=== PATIENT | male | born 1960 | race Caucasian/White ===

== ENCOUNTER 2025-03-20 08:53 | Emergency (ER) | payer MEDICARE, SELFPAY ==
[2025-03-20] VITALS (8 sets, daily range): BP systolic 158–224; BP diastolic 88–138; PULSE 74–88; RESP 12–21; TEMP 37; O2SAT 93–97; BMI 24.3
--- NOTE | 2025-03-20 09:19 | DI.RAD.S_ITS ---
PROCEDURE: XR CHEST 1V
--- NOTE | 2025-03-20 09:19 | DI.RAD.S_ITS ---
PROCEDURE: XR HAND RT MIN 3V
--- NOTE | 2025-03-20 09:19 | DI.CT.S_ITS ---
PROCEDURE: CT HEAD/BRAIN WO CON
[2025-03-20 09:26] LABS: Add Manual Diff / Slide Review NO; Hematocrit 48.2 % (41-53); Hemoglobin 16.1 g/dL (13.5-17.5); Lymphocytes Absolute Auto 1200 /uL (1100-4500); Mean Corpuscular HGB Conc 33.3 % (30-36); Mean Corpuscular Hemoglobin 30.3 PG (26-34); Mean Corpuscular Volume 90.9 fL (80-100); Platelet Count 293 X10^3/uL (150-400)
[2025-03-20 09:31] LABS: INR 1.2 (0.9-1.3); Prothrombin Time 13.7 SECONDS (9.4-12.5)
[2025-03-20 09:37] LABS: Alanine Aminotransferase 20 IU/L (<50); Albumin 5.1 g/dL (3.5-5.0); Albumin Globulin Ratio 1.4 (1.0-2.8); Alkaline Phosphatase 82 U/L (38-126); Blood Urea Nitrogen 9 mg/dL (9-20); Calcium 9.4 mg/dL (8.4-10.2); Carbon Dioxide 26 mmol/L (22-32); Chloride 103 mmol/L (98-107); Estimated Glomerular Filt Rate > 60 mL/min (>60); Globulin 3.6 g/dL (1.7-4.1); Glucose 126 mg/dL (70-99); HEMOLYSIS < 15 (0-50); Potassium 3.5 mmol/L (3.4-5.1); Sodium 142 mmol/L (137-145); Total Protein 8.7 g/dL (6.3-8.2)
--- NOTE | 2025-03-20 09:43 | ED.FALL ---
HPI - Fall General Chief Complaint: Trauma Stated Complaint: RT wrist/hand injury due to fall - t-1 Time Seen by Provider: 03/20/25 09:08 Source: patient Mode of arrival: Ambulatory History of Present Illness HPI Narrative: 65 years old male with history of hypertension, CVA on Plavix came in today complaining of right hand pain, head injury after the fall yesterday. He was walking [place] and slipped on a would log then fell backward his right side of his head to another would log without loss of consciousness, neck pain, back pain, chest pain, abdominal pain, nausea vomiting, headaches, numbness weakness on his arms or leg. He noticed right away the swelling, pain and bruises right hand. Related Data Previous Rx's ?Medication ?Instructions ?Recorded hydrocodone 5 mg-acetaminophen 325 1 tab PO Q8H PRN pain #8 tabs 03/20/25 mg tablet Allergies Allergy/AdvReac Type Severity Reaction Status Date / Time morphine Allergy ITCHING Verified 03/20/25 09:06 Review of Systems Review of Systems Narrative: Positive for head injury, right hand pain, swelling. Negative for neck pain, back pain, chest pain, abdominal pain, loss of consciousness, nausea vomiting, shortness of breath, numbness/weakness on his arms or legs. Patient History Social History Smoking Status: Former smoker Smoking Status: Former smoker Exam Narrative Exam Narrative: GENERAL: Alert awake without acute distress. HEAD: Atraumatic. Normocephalic. EYES: Normal eye movement both eyes. NECK: Trachea midline. Non tender. No midline C-spine tenderness on palpation. CARDIOVASCULAR: Regular rate and rhythm without murmurs, gallops, or rubs. RESPIRATORY: Clear to auscultation. Breath sounds equal bilaterally. No wheezes, rales, or rhonchi. GASTROINTESTINAL: Abdomen soft, non-tender, nondistended. EXTREMITIES: Tenderness on palpation, swelling, ecchymosis dorsum right hand. Decreased range of motion of finger flexion. No deformity or crepitus right hand. BACK: Nontender without deformity or crepitance. No flank tenderness. No midline tenderness on palpation thoracolumbar spine. NEURO: AOx3. Moving both arms and legs. Normal sensation and strength in both arms and legs. SKIN: No rash or erythema of visible areas. Swelling ecchymosis dorsum of the right hand. Initial Vital Signs Initial Vital Signs: Vital Signs Temperature 98.6 F 03/20/25 09:05 Pulse Rate 88 03/20/25 09:05 Respiratory Rate 18 03/20/25 09:05 Blood Pressure 224/105 H 03/20/25 09:05 Pulse Oximetry 96 03/20/25 09:05 Oxygen Delivery Method Room Air 03/20/25 09:05 Course Orders Ordered: Discontinued Medications Hydromorphone HCl (Hydromorphone Hcl 0.5 Mg/0.5 Ml Syringe) 0.5 mg IV NOW ONE Stop: 03/20/25 09:48 Last Admin: 03/20/25 09:51 Dose: 0.5 mg Documented By: WEI Hydromorphone HCl (Hydromorphone Hcl 0.5 Mg/0.5 Ml Syringe) 0.5 mg IV NOW ONE Stop: 03/20/25 10:42 Last Admin: 03/20/25 10:47 Dose: 0.5 mg Documented By: SONNY Vital Signs Vital signs: Vital Signs - 8 hr 03/20/25 09:05 03/20/25 09:16 03/20/25 09:31 Temperature 98.6 F Pulse Rate 88 87 78 Respiratory Rate 18 12 Blood Pressure 224/105 H Pulse Oximetry 96 97 Oxygen Delivery Method Room Air 03/20/25 09:32 03/20/25 09:32 03/20/25 10:00 Temperature Pulse Rate 81 Respiratory Rate 12 Blood Pressure 186/93 H 178/138 H Pulse Oximetry 96 Oxygen Delivery Method 03/20/25 10:00 03/20/25 10:02 03/20/25 10:02 Temperature Pulse Rate 78 80 Respiratory Rate 21 Blood Pressure 158/91 H Pulse Oximetry 96 94 Oxygen Delivery Method 03/20/25 10:30 03/20/25 10:30 Temperature Pulse Rate 74 Respiratory Rate 14 Blood Pressure 195/88 H Pulse Oximetry 93 Oxygen Delivery Method MDM - Fall Lab Data 03/20/25 09:18 03/20/25 09:18 Labs: Lab Results 03/20/25 Range/Units 09:18 WBC 11.9 H (4.5-11.0) X10^3/uL RBC 5.30 (4.5-5.9) X10^6/uL Hgb 16.1 (13.5-17.5) g/dL Hct 48.2 (41-53) % MCV 90.9 (80-100) fL MCH 30.3 (26-34) PG MCHC 33.3 (30-36) % RDW 13.8 (11.6-14.8) % Plt Count 293 (150-400) X10^3/uL Neut % (Auto) 81.2 H (50-75) % Lymph % (Auto) 9.9 L (25-40) % [place]wood % (Auto) 8.1 (3-14) % Eos % (Auto) 0.3 L (2-4) % Baso % (Auto) 0.5 (0-2) % Neut # (Auto) 9700 H (6653-0629) /uL Lymph # (Auto) 1200 (5225-7916) /uL [place]wood # (Auto) 1000 H (0-900) /uL Eos # (Auto) 0 (0-450) /uL Baso # (Auto) 100 (0-100) /uL PT 13.7 H (9.4-12.5) SECONDS INR 1.2 (0.9-1.3) Sodium 142 (137-145) mmol/L Potassium 3.5 (3.4-5.1) mmol/L Chloride 103 (98-107) mmol/L Carbon Dioxide 26 (22-32) mmol/L BUN 9 (9-20) mg/dL Creatinine 0.85 (0.66-1.25) mg/dL Estimated GFR > 60 (>60) mL/min BUN/Creatinine Ratio 10.6 (6-22) Glucose 126 H (70-99) mg/dL Calcium 9.4 (8.4-10.2) mg/dL Total Bilirubin 0.9 (0.2-1.3) mg/dL AST 24 (17-59) IU/L ALT 20 (<50) IU/L Alkaline Phosphatase 82 (38-126) U/L Total Protein 8.7 H (6.3-8.2) g/dL Albumin 5.1 H (3.5-5.0) g/dL Globulin 3.6 (1.7-4.1) g/dL Albumin/Globulin Ratio 1.4 (1.0-2.8) Imaging Data CT scan - head: Radiologist's Impression: PROCEDURE: CT HEAD/BRAIN WO CON INDICATIONS: Fall, head injury, on Plavix TECHNIQUE: Noncontrast 4.5 mm thick angled axial sections acquired from the foramen magnum to the vertex, with coronal and sagittal reformats. For radiation dose reduction, the following was used: automated exposure control, adjustment of mA and/or kV according to patient size. COMPARISON: None. FINDINGS: Image quality: Diagnostic. CSF spaces: Basal cisterns are patent. No extra-axial fluid collections. Ventricles are normal in size and shape. Brain: No midline shift. No intracranial mass effect or hemorrhage. Rollins-white matter interface is normal. Skull and face: Calvarium and visualized facial bones are intact, without suspicious lesions. Sinuses: Visualized sinuses and mastoids are clear. IMPRESSION: No acute intracranial pathology. Dictated by: Carla Chandler M.D. on 03/20/2025 at 9:29 Approved by: Carla Chandler M.D. on 03/20/2025 at 9:30 Right hand x-ray: Radiologist's Impression: PROCEDURE: XR HAND RT MIN 3V INDICATIONS: Right hand pain, fall TECHNIQUE: 4 views of the hand(s) acquired. COMPARISON: None. FINDINGS: Bones: No fractures or dislocations. Carpal bones are normally aligned. No suspicious bony lesions. Soft tissues: No suspicious soft tissue calcifications. IMPRESSION: No acute bony abnormality. Dictated by: Carla Chandler M.D. on 03/20/2025 at 9:25 Approved by: Carla Chandler M.D. on 03/20/2025 at 9:28 Chest x-ray: Radiologist's Impression: PROCEDURE: XR CHEST 1V INDICATIONS: Fall. TECHNIQUE: One view of the chest was acquired. COMPARISON: None. FINDINGS: Surgical changes and devices: None. Lungs and pleura: Lungs are clear. No pleural effusions or pneumothorax. Mediastinum: Mediastinal contours appear normal. Heart size is normal. Bones and chest wall: No suspicious bony lesions. Overlying soft tissues appear unremarkable. IMPRESSION: No displaced rib fracture or underlying pulmonary injury. Dictated by: Carla Chandler M.D. on 03/20/2025 at 9:28 Approved by: Carla Chandler M.D. on 03/20/2025 at 9:29 MDM Narrative Medical decision making narrative: 65 years old male on Plavix came in today complaining of head injury, right hand pain after slip and fell and hit the right side of his head on the log yesterday with a loss of consciousness, neck pain, back pain, chest pain, nausea vomiting, headaches. Neuro exam was intact without focal deficits. His CV exam, abdominal exam, lung exam were normal. He is alert oriented x4 without acute distress in the ED. his CBC showed WBC 11.9 otherwise normal CBC. His INR is 1.2 and CMP was normal. His CT brain, right hand x-ray and chest x-ray showed no acute finding. He was put on a Velcro wrist brace and discharged with Vicodin. In our ED he was given Percocet, Dilaudid for pain. He will continue with resting, elevation, icing. Discharge Plan Departure Patient Disposition: Home Clinical Impression: Contusion of hand, Head injury Instructions: DI for Contusion, DI for Closed Head Injury Activity Restrictions/Additional Instructions: Please come back to the emergency room if any worsening symptoms including but not limited to headache, persistent vomiting, numbness weakness on your arms or legs, neck pain. Please continue Welchol risks brace. Please take ibuprofen as needed. He was sent home with Vicodin. Prescriptions: New hydrocodone-acetaminophen 5-325 mg tablet 1 tab PO Q8H PRN (Reason: pain) Qty: 8 0RF Referrals: Darcy Davis PA-C [Primary Care Provider, Medical] Stand Alone Forms: Patient Portal/API
== END 2025-03-20 11:24 | disposition home or self-care (01) ==
PROVIDERS: Emergency Provider Emergency Medicine; PCP Physician Assistant
DX: S60.221A Contusion of right hand, initial encounter (principal); S09.90XA Unspecified injury of head, initial encounter; W01.198A Fall on same level from slipping, tripping and stumbling with subsequent striking against other object, initial encounter; Z86.73 Personal history of transient ischemic attack (TIA), and cerebral infarction without residual deficits; Z79.01 Long term (current) use of anticoagulants
CPT/HCPCS: 70450; 71045; 73130; 80053; 85025; 85610; 96374; 96376; 99284; J1171